=== PATIENT | female | born 1985 | race Caucasian/White ===

== ENCOUNTER 2017-08-08 17:54 | Observation (INO) | payer OTHER ==
--- NOTE | 2017-08-08 18:28 | OBPROG ---
Labor Progress Note Assessment/Plan: Assessment:cat 1 fhr q5 minutes apart pain 5/10 denies bleeding feeling positive movement Plan:moving around for several hours recheck cervix 08/08/17 18:26 Subjective/Intrapartum Course: 08/08/17 18:26 Feeling pain with contractions 5/10. Feels better when out of bed. - SVE Dilation (cm): 2 Effacement (%): 50 Station: -1 Membranes: Intact - Contraction Pattern Assessment Current Contraction Pattern: Irregular - Physical Exam General Appearance: WD/WN, alert, no apparent distress Respiratory: chest non-tender, lungs clear, normal breath sounds Cardiac/Chest: regular rate, rhythm Abdomen: normal bowel sounds Extremities: normal range of motion, Karlie's sign (negative bilaterally) DTR- Lower Extremities: Knee (R): 1+, Knee (L): 1+ (no clonus) Skin: normal color, warm/dry Neuro/Psych: no motor/sensory deficits, alert, normal mood/affect, oriented x 3 Oxytocin Orders Assessment - Pre-Induction/Augmentation Assessment Gestational Age: 39 week(s) and 0 day(s) ICD10 Worksheet Patient Problems: Problems Problem Status Onset term labor check Acute
--- NOTE | 2017-08-08 20:18 | OBPROG ---
Labor Progress Note Assessment/Plan: Assessment:cat 1 fhr q1-5 minutes apart pain 5/10 + bloody show feeling positive movement no change to cervix after several hours 2-3/50/ballotable vs stable wnl walking around unit without difficulty Plan:discharge to home with instructions. leaking, bleeding, regular contractions, baby not moving verbalized understanding of reasons to return to labor and delivery. keep fu appt on tuesday08/08/17 18:26 08/08/17 20:16 Subjective/Intrapartum Course: 08/08/17 18:26 Feeling pain with contractions 5/10. Feels better when out of bed. 08/08/17 20:15 Patient states pains feeling stronger - SVE Dilation (cm): 2, 3 Effacement (%): 50 Station: -3 Membranes: Intact - Contraction Pattern Assessment Current Contraction Pattern: Irregular - FHR Assessment Perry FHR (bpm): 135 - Physical Exam General Appearance: WD/WN, alert, no apparent distress Respiratory: chest non-tender, lungs clear, normal breath sounds Cardiac/Chest: regular rate, rhythm Abdomen: normal bowel sounds Extremities: normal range of motion, Karlie's sign (negative bilaterally) DTR- Lower Extremities: Knee (R): 1+, Knee (L): 1+ (no clonus) Skin: normal color, warm/dry Neuro/Psych: no motor/sensory deficits, alert, normal mood/affect, oriented x 3 Oxytocin Orders Assessment - Pre-Induction/Augmentation Assessment Gestational Age: 39 week(s) and 0 day(s) ICD10 Worksheet Patient Problems: Problems Problem Status Onset term labor check Acute
--- NOTE | 2017-08-08 21:13 | GHP ---
[f rep st] HISTORY AND PHYSICAL DATE OF ADMISSION: 08/08/2017 HISTORY OF PRESENT ILLNESS: The patient is a 1, para 0, 32-year-old, with an EDC of 08/15/20 17, which gives her a gestational age of 39 weeks, who comes in on 08/08/2017, with complaints of reg ular contractions. Denies leaking, denies bleeding. States feeling regular contractions that are ge tting harder and stronger, 5/10 pain. States feeling positive movement. The patient is GBS ne gative. PAST MEDICAL HISTORY: History of migraines. Rh negative. Other medical history is benign. PAST SURGICAL HISTORY: Benign. GYNECOLOGICAL HISTORY: Noncontributory. SOCIAL HISTORY: The patient is to [place]. Denies tobacco use. Denies drug use. HISTORY: Had Tdap in the at 31-3/7 weeks. PHYSICAL ASSESSMENT: GENERAL: The patient is awake, alert, oriented x3. LUNGS: Clear bilaterally. ABDOMEN: Bowel sounds are positive in all 4 quadrants. EXTREMITIES: DTRs are 1+ bilaterally. Ho terrell sign is negative bilaterally. LABORATORY DATA: RPR is nonreactive. Hepatitis B is negative. HIV is negative. Varicella is posit henok. Gonorrhea and chlamydia are negative. Group beta strep is negative. Rubella is immune. PLAN OF CARE: 1. GBS negative. 2. Exam in the office: Patient was 2, 50, -2. The patient will walk for 2 hours and then recheck c ervix. On recheck, patient was unchanged, 2-3, 50, ballotable, cephalic. 3. The patient will be discharged with instructions to return with greater pain with contractions, o r follow up in the office on Tuesday for a return OB. /[id number]/MODL
== END 2017-08-08 20:25 | disposition home or self-care (01) ==
LOC: FLD 17:54
PROVIDERS: ADMIT Advanced Practice Midwife; ATTEND Advanced Practice Midwife
DX: O47.1 False labor at or after 37 completed weeks of gestation (principal); Z3A.39 39 weeks gestation of pregnancy
CPT/HCPCS: G0378 ×2

== ENCOUNTER 2017-08-08 22:55 | Inpatient (IN) | payer OTHER ==
[2017-08-08] MEDS ORDERED: morphINE PF 5 MG/10 ML INJ ONE (23:30)
[2017-08-08] MEDS ORDERED: fentaNYL 100 MCG/2 ML INJ ONE (23:30)
[2017-08-08] MEDS ORDERED: LIDOCAINE 2% 5 ML SDV ONE (23:36)
[2017-08-08] MEDS ORDERED: ROCURONIUM 50 MG/5 ML VIAL ONE (23:36)
[2017-08-08] MEDS ORDERED: OXYTOCIN 100 UNITS/10 ML VIAL ONE (23:36)
[2017-08-08] MEDS ORDERED: ONDANSETRON 4 MG/2 ML VIAL ONE (23:36)
[2017-08-08] MEDS ORDERED: PHENYLEPHRINE 10 MG/ML SDV ONE (23:37)
[2017-08-08] MEDS ORDERED: ceFAZolin 2 GM/DEXTROSE 100 ML IV ONE (23:45)
[2017-08-09] MEDS ORDERED: fentaNYL 2MCG/ML/BUP 0.1% RTU 100 ML BAG EP ONE (00:13)
[2017-08-09] MEDS ORDERED: OXYTOCIN 20 UNIT in LR 1,000 ML IV PRN (00:26)
[2017-08-09] MEDS ORDERED: TERBUTALINE SULFATE 1 MG/ML VIAL IV PRN (00:26)
[2017-08-09] MEDS ORDERED: LR 1,000 ML IV PRN (00:26)
[2017-08-09] MEDS ORDERED: OLIVE OIL 118 ML BTL MISC PRN (00:26)
[2017-08-09] MEDS ORDERED: EPSOM SALT 454 GM TP PRN (00:26)
--- NOTE | 2017-08-09 00:35 | OBPROG ---
Labor Progress Note Assessment/Plan: Assessment: cat 2 fhr pain well managed with epidural contractions q 2-3 minutes + bloody show dr. cordero in house vs wnl epidural working well patient feeling pressure Plan:expectant management of labor 08/09/17 00:36 Subjective/Intrapartum Course: 08/09/17 00:25 Patient to labor and delivery. Feeling pressure. Exam by nurse . 8 cm. With exam heart rate to the 50's. IV placed labs drawn fluids given. call to cnm to come to the room. Cnm to room exam 8-9 cm 0 station bag of water ruptured at home. Patient felt a pop around 2100. Change in position no return of the hearttones. With exam bleeding noted. Decided no terbutaline. Continued low hearttones. to left side. hanna placed . Dr. Cordero called to come to delivery. OR opened. Anesthesia to patients room. Patient to the OR to await dr. Cordero. Antibiotics ancef given in case of need for section. Once in the OR heart tones returned to a baseline of [address] Cordero to room recovery. Patient requesting epidural for pain relief . Epidural placed with good results. PAtient returned to her room . PAin level a 0-1. FHR 150's. Cervix rechecked after return to patients room 10/100/0. Will labor down. 08/09/17 00:35 - SVE Dilation (cm): 10 Effacement (%): 100 Station: 0 Membranes: SROM Amniotic Fluid Color: Clear - Contraction Pattern Assessment Current Contraction Pattern: Regular - FHR Assessment Perry FHR (bpm): 150 FHR Pattern Variability: Moderate FHR Category: 1 - AP Antepartum Course: ho migraines, RH neg. 08/09/17 00:38 - Physical Exam General Appearance: WD/WN, alert, no apparent distress Respiratory: chest non-tender, lungs clear, normal breath sounds Cardiac/Chest: regular rate, rhythm Abdomen: normal bowel sounds Extremities: normal range of motion, Karlie's sign (negative homens) DTR- Lower Extremities: Knee (R): 1+, Knee (L): 1+ (no clonus) Skin: normal color, warm/dry Neuro/Psych: no motor/sensory deficits, alert, normal mood/affect, oriented x 3 ICD10 Worksheet Patient Problems: Problems Problem Status Onset labor Acute
[2017-08-09] MEDS ORDERED: BUPIVACAINE 0.25% 30 ML SDV ONE (00:36)
[2017-08-09] MEDS ORDERED: PHENYLEPHRINE HCL 100 MCG/ML SYR IVP PRN (00:40)
[2017-08-09] MEDS ORDERED: NALOXONE HCL 0.4 MG/ML INJ IVP PRN (00:40)
[2017-08-09] MEDS ORDERED: ONDANSETRON 4 MG/2 ML VIAL IVP PRN (00:40)
--- NOTE | 2017-08-09 00:44 | PREANESOB ---
Obstetric Pre-Anesthesia Info - General Info Proposed Procedure: CRASH - Info Status: Full Term FHR Baseline (bpm): 50 FHR Pattern: Non-reassuring - Labor Status Cervical Dilation per last OB SVE: 8, 10 Station per last OB SVE: 0 Amniotic Fluid Color: Clear, Bloody Section History: Primary Indications for Current Section: Non-reas. Status Labor Epidural: Proposed Anesthesia Allergies/Adverse Reactions: Allergy/AdvReac Type Severity Reaction Status Date / Time No Known Allergies Allergy Unverified 08/08/17 18:14 Home Medications: Medication Instructions Recorded FOLIC ACID 1 PO DAILY 08/08/17 MAGNESIUM 1 tab PO DAILY 08/08/17 1 tab PO DAILY 08/08/17 Zantac 75 75 mg PO BID 08/08/17 Visit Medications: Generic Name Dose Route Start Last Admin Trade Name Freq PRN Reason Stop Dose Admin Lactated Ringer's 1,000 mls @ 0 mls/hr 08/09/17 00:26 Lr IV 02/05/18 00:25 PRN PRN SEE PROTOCOL CONDITIONS Protocol Per Protocol Oxytocin 20 unit/ Lactated 1,002 mls @ 150 mls/hr 08/09/17 00:26 Ringer's IV PRN PRN Post- bleeding Ibuprofen 600 mg 08/09/17 00:26 Motrin PO 02/05/18 00:25 Q6HRS PRN post , inflammation Magnesium Sulfate 454 gm 08/09/17 00:26 Epsom Salt TP 02/05/18 00:25 Q1H PRN perineal discomfort Hammond Oil 118 ml 08/09/17 00:26 Sweet Oil MISC 02/05/18 00:25 ONCE PRN perineal massage Terbutaline Sulfate 0.25 mg 08/09/17 00:26 Brethine IV 02/05/18 00:25 ONCE PRN Tachysystole Discontinued Medications Generic Name Dose Route Start Last Admin Trade Name Freq PRN Reason Stop Dose Admin Bupivacaine HCl Confirm 08/09/17 00:36 Sensorcaine 0.25% Sdv Administered 08/09/17 00:37 Dose 30 ml .ROUTE .STK-MED ONE Fentanyl Confirm 08/08/17 23:30 Sublimaze Administered 08/08/17 23:31 Dose 100 mcg .ROUTE .STK-MED ONE Fentanyl/Bupivacaine HCl Confirm 08/09/17 00:13 Fentanyl/Bupivacaine/Ns 2 Mcg/Ml 0.1% (Premix Administered 08/09/17 00:14 Dose 100 ml EP .STK-MED ONE Cefazolin Sodium/Dextrose 100 mls @ 200 mls/hr 08/08/17 23:45 Ancef 2 Gm (Premix) IV 08/09/17 00:14 ONCALL ONE Lidocaine HCl Confirm 08/08/17 23:36 Xylocaine-Mpf 2% Vial Administered 08/08/17 23:37 Dose 5 ml .ROUTE .STK-MED ONE Morphine Sulfate Confirm 08/08/17 23:30 Morphine Pf 5 Mg/10 Ml Administered 08/08/17 23:31 Dose 5 mg .ROUTE .STK-MED ONE Ondansetron HCl Confirm 08/08/17 23:36 Zofran Administered 08/08/17 23:37 Dose 4 mg .ROUTE .STK-MED ONE Oxytocin Confirm 08/08/17 23:36 Pitocin Administered 08/08/17 23:37 Dose 100 units .ROUTE .STK-MED ONE Phenylephrine HCl Confirm 08/08/17 23:37 Neosynephrine Administered 08/08/17 23:38 Dose 10 mg .ROUTE .STK-MED ONE Rocuronium Morgan Confirm 08/08/17 23:36 Zemuron Administered 08/08/17 23:37 Dose 50 mg .ROUTE .STK-MED ONE - Anesthesia History Response to Local Anesthetics: Normal Anesthesia & Operative History: Other (Specify) (NONE) Family Anesthesia History: Negative - Social History Substance Use/Abuse: Denies - Focused Exam Neck exam: FROM Mallampati Score: Class 2 Mouth exam: normal dental/mouth exam Pulmonary: no respiratory distress Cardiovascular: regular rate and rhythym - Plan Anesthetic Plan: ga Consent Signed and on Chart: No Patient/Guardian Understands and Agrees to Plan: Yes Urgent/Emergent Case: Fernando lewis completed preop but documented later for safe timely pt care General Comments: baby recovered and we went on to do a labor epidural
--- NOTE | 2017-08-09 00:46 | OBPROG ---
Labor Progress Note Assessment/Plan: Assessment: IUP at 39 wks rapid labor and tachysystole after SROM at 9m heavy bldy show while pt was going from 7-9cm bradycardia and preparations were made for emergent c/s Plan: upon entering the OR the FHTs are stable, CAT I and small variable decels with ctxns but GBTBV and accels Decision to place BECKY and reassess for labor attempt 08/09/17 00:42 Subjective/Intrapartum Course: 08/09/17 00:25 Patient to labor and delivery. Feeling pressure. Exam by nurse . 8 cm. With exam heart rate to the 50's. IV placed labs drawn fluids given. call to cnm to come to the room. Cnm to room exam 8-9 cm 0 station bag of water ruptured at home. Patient felt a pop around 2100. Change in position no return of the hearttones. With exam bleeding noted. Decided no terbutaline. Continued low hearttones. to left side. hanna placed . Dr. Huber called to come to delivery. OR opened. Anesthesia to patients room. Patient to the OR to await dr. Huber. Antibiotics ancef given in case of need for section. Once in the OR heart tones returned to a baseline of [address] Huber to room recovery. Patient requesting epidural for pain relief . Epidural placed with good results. PAtient returned to her room . PAin level a 0-1. FHR 150's. Cervix rechecked after return to patients room 10/100/0. Will labor down. 08/09/17 00:35 08/09/17 00:46 I was called at home at 23:19 to come emergently for pt with FHTs down in 50s. Pt's VS stable - no active bleeding but c/w heavy bloody show, but concern for abruption. CNM Windels with pt and FSE and hanna placed, position changes and pt taken to OR, Dr Arndt present - FHTs down from 23:09 to 23:19 with sparce monitoring then recovered up to the 90s, with cont slow recovery to 120s by 23: 25. With evidence of CAT I tracing, we had Dr Moctezuma place an BECKY and then pt taken back to labor room. She is now complete at 0 station. Does feel pressure with ctxns. FHTs once in room at 00:11 were 150s without accels and very subtle decels c/w lates. position was altered and BTBV improved. Pt now pushing and variables noted with ctxns. - SVE Membranes: SROM Amniotic Fluid Color: Clear - Contraction Pattern Assessment Current Contraction Pattern: Regular - AP Antepartum Course: ho migraines, RH neg. 08/09/17 00:38
[2017-08-09 00:58] LABS: ABSOLUTE IMMATURE GRANULOCYTES 0.13 10^3/uL (0.00-0.10); ADD DIFF? NO; ADD MORPH? NO; ADD SCAN? NO; ATYPICAL LYMPHOCYTE FLAG 0 (0-99); FRAGMENT RBC FLAG 0 (0-99); HEMATOCRIT 39.6 % (38.0-47.0); HEMOGLOBIN 13.5 g/dL (12.6-16.3); LEFT SHIFT FLG 0 (0-99); LIPEMIA HEMOLYSIS FLAG 90 (0-99); MEAN CELL HEMOGLOBIN CONCENTR. 34.1 g/dL (32.4-36.7); MEAN PLATELET VOLUME 10.1 fL (8.7-11.7); PLATELET CLUMPS FLAG 20 (0-99); PLATELET COUNT 251 10^3/uL (150-400); RED CELL DISTRIBUTION WIDTH 13.7 % (11.5-15.2)
[2017-08-09] MEDS ORDERED: LR 500 ML IV SCH (01:00)
[2017-08-09] MEDS ORDERED: fentaNYL 2MCG/ML/BUP 0.1% RTU 100 ML EP SCH (01:00)
[2017-08-09] MEDS ORDERED: OLIVE OIL 118 ML BTL ONE (01:04)
[2017-08-09] MEDS ORDERED: TERBUTALINE SULFATE 1 MG/ML VIAL ONE (01:04)
[2017-08-09] MEDS ORDERED: AMMONIA AROMATIC 1 EACH AMP IH ONE (01:04)
[2017-08-09] MEDS ORDERED: LIDOCAINE 1% 300 MG/30 ML SDV ONE (01:04)
[2017-08-09] MEDS ORDERED: OXYTOCIN 10 UNIT/ML VIAL ONE ×2 (01:05→01:08)
[2017-08-09] MEDS ORDERED: MISOPROSTOL 200 MCG TAB ONE (01:05)
[2017-08-09 02:31] LABS: CORD BLOOD PCO2 50.6 mmHg (37-60)
[2017-08-09 02:32] LABS: BASE EXCESS CORD -9.3 mEq/L (-13.6--3.2)
--- NOTE | 2017-08-09 02:50 | OBDEL ---
Info Type: Vaginal Presentation at Delivery: Vertex L&D Analgesia/Anesthesia Type: Epidural GBS+: No (received ancef antibiotics for potential section) - Hospital Course Intrapartum: 08/09/17 00:25 Patient to labor and delivery. Feeling pressure. Exam by nurse . 8 cm. With exam heart rate to the 50's. IV placed labs drawn fluids given. call to cnm to come to the room. Cnm to room exam 8-9 cm 0 station bag of water ruptured at home. Patient felt a pop around 2100. Change in position no return of the hearttones. With exam bleeding noted. Decided no terbutaline. Continued low hearttones. to left side. hanna placed . Dr. Huber called to come to delivery. OR opened. Anesthesia to patients room. Patient to the OR to await dr. Huber. Antibiotics ancef given in case of need for section. Once in the OR heart tones returned to a baseline of [address] Huber to room recovery. Patient requesting epidural for pain relief . Epidural placed with good results. PAtient returned to her room . PAin level a 0-1. FHR 150's. Cervix rechecked after return to patients room 10/100/0. Will labor down. 08/09/17 00:35 08/09/17 00:46 I was called at home at 23:19 to come emergently for pt with FHTs down in 50s. Pt's VS stable - no active bleeding but c/w heavy bloody show, but concern for abruption. FRANK Segovia with pt and FSE and hanna placed, position changes and pt taken to OR, Dr Arndt present - FHTs down from 23:09 to 23:19 with sparce monitoring then recovered up to the 90s, with cont slow recovery to 120s by 23: 25. With evidence of CAT I tracing, we had Dr Moctezuma place an BECKY and then pt taken back to labor room. She is now complete at 0 station. Does feel pressure with ctxns. FHTs once in room at 00:11 were 150s without accels and very subtle decels c/w lates. position was altered and BTBV improved. Pt now pushing and variables noted with ctxns. Indications for Delivery: Spontaneous Labor, SROM Vaginal Delivery - Delivery Provider Delivery Physician/CNM: Arlene Segovia Proctoring Provider: Laya Huber - Labor and Delivery Onset of Contractions Date: 08/08/17 Onset of Contractions Time: 15:00 Onset of Contractions Type: Spontaneous Rupture of Membranes Date: 08/08/17 Rupture of Membranes Time: 21:00 Rupture of Membranes Type: Spontaneous Amniotic Fluid Color: Clear, Meconium Stained Dilation Complete Date: 08/09/17 Dilation Complete Time: 00:15 Placenta Delivery Date: 08/09/17 Placenta Delivery Time: 02:07 Total Hours of Labor: 11 Laceration: 2nd Degree, Other (Specify) (left sulcous, left labial) Repair: 3-0, Vicryl Vaginal Sponge Count Correct: Yes Vaginal Needle Count Correct: Yes Vaginal Sweep Performed: No EBL: 400 Delivery Events: Nuchal Cord (x2) Cord Gases: Cord Gases Cord Blood PCO2 50.6 mmHg (37-60) 08/09/17 02:17 Cord Base Excess -9.3 mEq/L (-13.6--3.2) 08/09/17 02:17 Cord ABG pH 7.20 (7.10-7.37) 08/09/17 02:17 Cord VBG pH REJ 08/09/17 02:17 Operative Report - Delivery Indications for Current Section: Non-reas. Status Cord Gases: Cord Gases Cord Blood PCO2 50.6 mmHg (37-60) 08/09/17 02:17 Cord Base Excess -9.3 mEq/L (-13.6--3.2) 08/09/17 02:17 Cord ABG pH 7.20 (7.10-7.37) 08/09/17 02:17 Cord VBG pH REJ 08/09/17 02:17 Data Perry Delivery Date: 08/09/17 Delivery Time: 02:01 WILLIAM: 08/15/17 Gestational Age: 39 week(s) and 1 day(s) Sex of : Female Score (1 Min): 8 Score (5 Min): 9 ICD10 Worksheet Patient Problems: Problems Problem Status Onset bradycardia Acute Rapid second stage of labor Acute SROM (spontaneous rupture of membranes) Acute labor Acute
[2017-08-09] MEDS ORDERED: SIMETHICONE 80 MG TAB CHEW PO PRN (02:51)
[2017-08-09] MEDS ORDERED: ACETAMINOPHEN 325 MG TAB PO PRN (02:51)
[2017-08-09] MEDS ORDERED: HYDROCODONE/APAP 5/325 TAB PO PRN (02:51)
[2017-08-09] MEDS ORDERED: HYDROCORTISONE 0.5% CREAM TP PRN (02:51)
[2017-08-09] MEDS: IBUPROFEN 600 MG TAB PO PRN ×3 (07:49→20:24)
[2017-08-09] MEDS: DOCUSATE SODIUM 100 MG CAP PO PRN ×2 (11:59→20:25)
--- NOTE | 2017-08-09 17:47 | OBPP ---
Progress Note Assessment/Plan: Assessment: 32-year-old WF PPD#0 s/p @ 2AM today. Doing well. Plan: Routine PP care. Anticipate DC home in 24-48 hrs. 08/09/17 17:44 Subjective/ Course: 08/09/17 17:44 Patient reports minimal pain and some cramping with . She reports moderate lochia. Objective: 08/08/17 23:10 Patient ABO/Rh A NEGATIVE 08/08/17 23:10 Temp Pulse Resp BP Pulse Ox 36.6 C 84 16 110/79 08/09/17 10:05 08/09/17 10:05 08/09/17 10:05 08/09/17 10:05 Uterine Position/Fundal Height: Umbilicus -1 Uterine Tone: Firm Physical Exam - Physical Exam Neck: supple Respiratory: lungs clear, normal breath sounds Cardiac/Chest: regular rate, rhythm Abdomen: normal bowel sounds Extremities: normal range of motion, non-tender DTR- Lower Extremities: Knee (R): 1+, Knee (L): 1+ Skin: normal color, warm/dry Neuro/Psych: no motor/sensory deficits, alert, normal mood/affect, oriented x 3
[2017-08-10] MEDS: IBUPROFEN 600 MG TAB PO PRN ×3 (02:01→15:26)
[2017-08-10] MEDS ORDERED: SUCROSE 1 EA UDL ONE (02:03)
[2017-08-10] MEDS: DOCUSATE SODIUM 100 MG CAP PO PRN (08:27)
[2017-08-10 10:44] VITALS: BP 107/72; PULSE 86; RESP 18; TEMP 98.3; O2SAT 94
--- NOTE | 2017-08-10 10:47 | OBPP ---
Progress Note Assessment/Plan: Assessment: 1) s/p PPD # 1.5 -pt is stable 2) Anemia - pt is asymptomatic 3) Rh negative - Rhogam eval Plan: Plan for d/c home Instructions reviewed with pt No Rx given Cont PNV Start iron/colace Pelvic rest RTC in 4 and 6 weeks for pp visit 08/10/17 10:44 Subjective/ Course: 08/09/17 17:44 Patient reports minimal pain and some cramping with . She reports moderate lochia. 08/10/17 10:45 Pt seen and examined. Doing well with no complaints. Minimal cramping. Mod lochia. She is OOB, asher reg diet, voiding and passing flatus. No BM. BF without difficulty. Objective: 08/10/17 06:04 Patient ABO/Rh A NEGATIVE 08/08/17 23:10 Temp Pulse Resp BP Pulse Ox 36.8 C 86 18 107/72 94 08/10/17 10:00 08/10/17 10:00 08/10/17 10:00 08/10/17 10:00 08/10/17 10:00 Uterine Position/Fundal Height: Umbilicus -2 Uterine Tone: Firm Physical Exam - Physical Exam Respiratory: lungs clear, normal breath sounds Cardiac/Chest: regular rate, rhythm Abdomen: normal bowel sounds, non-tender, soft, flatus (+) Extremities: non-tender, normal inspection Skin: normal color, warm/dry Neuro/Psych: alert, normal mood/affect
--- NOTE | 2017-08-10 10:48 | OBGCSDC ---
General Delivery Information - General Info : 1 Para: 1 Abortions: 0 Type: Vaginal L&D Analgesia/Anesthesia Type: Epidural Admission Date: 08/08/17 Labs: Patient ABO/Rh A NEGATIVE 08/08/17 23:10 Hct 32.6 % (38.0-47.0) L 08/10/17 06:04 - Hospital Course Antepartum: ho migraines, RH neg. 08/09/17 00:38 Intrapartum: 08/09/17 00:25 Patient to labor and delivery. Feeling pressure. Exam by nurse . 8 cm. With exam heart rate to the 50's. IV placed labs drawn fluids given. call to cnm to come to the room. Cnm to room exam 8-9 cm 0 station bag of water ruptured at home. Patient felt a pop around 2100. Change in position no return of the hearttones. With exam bleeding noted. Decided no terbutaline. Continued low hearttones. to left side. hanna placed . Dr. Huber called to come to delivery. OR opened. Anesthesia to patients room. Patient to the OR to await dr. Huber. Antibiotics ancef given in case of need for section. Once in the OR heart tones returned to a baseline of [address] Huber to room recovery. Patient requesting epidural for pain relief . Epidural placed with good results. PAtient returned to her room . PAin level a 0-1. FHR 150's. Cervix rechecked after return to patients room 10/100/0. Will labor down. 08/09/17 00:35 08/09/17 00:46 I was called at home at 23:19 to come emergently for pt with FHTs down in 50s. Pt's VS stable - no active bleeding but c/w heavy bloody show, but concern for abruption. CNM Windels with pt and FSE and hanna placed, position changes and pt taken to OR, Dr Arndt present - FHTs down from 23:09 to 23:19 with sparce monitoring then recovered up to the 90s, with cont slow recovery to 120s by 23: 25. With evidence of CAT I tracing, we had Dr Moctezuma place an BECKY and then pt taken back to labor room. She is now complete at 0 station. Does feel pressure with ctxns. FHTs once in room at 00:11 were 150s without accels and very subtle decels c/w lates. position was altered and BTBV improved. Pt now pushing and variables noted with ctxns. : 08/09/17 17:44 Patient reports minimal pain and some cramping with . She reports moderate lochia. 08/10/17 10:45 Pt seen and examined. Doing well with no complaints. Minimal cramping. Mod lochia. She is OOB, asher reg diet, voiding and passing flatus. No BM. BF without difficulty. Vaginal - Delivery Provider Delivery Physician/CNM: Arlene Segovia - Diagnosis Labor: Spontaneous Rupture of Membranes Type: Spontaneous Amniotic Fluid Color: Clear, Meconium Stained Laceration: 2nd Degree, Other (Specify) (left sulcous, left labial) Repair: 3-0, Vicryl Delivery Events: Nuchal Cord (x2) - Delivery Indications for Current Section: Non-reas. Status EBL: 400 Data Perry Delivery Date: 08/09/17 Delivery Time: 02:01 WILLIAM: 08/15/17 Gestational Age: 39 week(s) and 2 day(s) Sex of : Female [place] Weight (gm): 2788 g Score (1 Min): 8 Score (5 Min): 9 Discharge Information - Discharge Information Condition: Good Instruction/Follow Up: Four Weeks, Six Weeks
== END 2017-08-10 16:50 | disposition home or self-care (01) | DRG 775 ==
LOC: FLD 22:55 → OBSVTOIN 22:55 → FOB 08-09 06:30
PROVIDERS: ADMIT Advanced Practice Midwife; ATTEND Advanced Practice Midwife
PROC: 0KQM0ZZ Repair Perineum Muscle, Open Approach (ICD-10-PCS; principal; 2017-08-09)
PROC: 10E0XZZ Delivery of Products of Conception, External Approach (ICD-10-PCS; principal; 2017-08-09)
DX: O70.1 Second degree perineal laceration during delivery (principal); Z37.0 Single live birth; Z3A.39 39 weeks gestation of pregnancy; O69.82X0 Labor and delivery complicated by other cord entanglement, without compression, not applicable or unspecified
CPT/HCPCS: J0690; J2274; J2370; J2405; J2590; J3010; J3105